=== PATIENT | female | born 1960 | race Caucasian/White ===

== ENCOUNTER → 2018-12-02 | Outpatient (CLI) | payer BC ==
[~2018-12-02] MED LIST: ASP81TEC PO; MAG355OR PO; OLME20TA5 PO; OMEP-10 PO; PITA2TAB2 PO; TRAM-21 PO
--- NOTE | 2018-12-02 10:45 | Diagnostic Imaging Report ---
INDICATION: Postmenopausal screening for osteoporosis. COMPARISON: None FINDINGS: AP Spine L1-L4: [BMD (g/cm2): 0.985] [T-Score: -1.8] [Z-Score: -0.8] [BMD Previous: na] [BMD % Change: na] LT Hip Neck: [BMD (g/cm2): 0.905] [T-Score: -1.0] [Z-Score: 0.2] LT Hip Total: [BMD (g/cm2):0.809] [T-Score:-1.6] [Z-Score: -0.8] [BMD Previous: na] [BMD % Change: na] RT Hip Neck: [BMD (g/cm2):0.926] [T-Score:-0.8] [Z-Score:0.3] RT Hip Total: [BMD (g/cm2):0.833] [T-score:-1.4] [Z-Score:-0.6] [BMD Previous:na] [BMD % Change:na] *Indicates significant change from prior examination based on 95% confidence level. World Health Organization criteria for BMD interpretation classify patients as Normal (T-score at or above -1.0), Osteopenic (T-score between -1.0 and -2.5) or Osteoporotic (T-score at or below -2.5). LIMITATIONS AND MODIFICATION: None. FRACTURE RISK (FRAX SCORE): The ten year probability of (%): Major Osteoporotic Fracture: [5.3] Hip Fracture: [.3] IMPRESSION: 1. Osteopenia (Low bone mass). 2. Baseline examination. 3. See below National Osteoporosis Foundation guidelines on when to potentially initiate pharmacologic therapy. Based on the National Osteoporosis Foundation Guidelines, pharmacologic treatment should be initiated in any of the following, unless clinical conditions suggest otherwise: * Any patient with prior fragility fracture of the hip or vertebrae. A spine fracture indicates 5X risk for subsequent spine fracture and 2X risk for subsequent hip fracture. * Osteoporosis (T-score <-2.5). * Postmenopausal women and men age 50 and older with low bone mass/osteopenia (T-score between -1.0 and -2.5) by DXA and 10-year major osteoporotic fracture greater than 20% or a 10-year probability of hip fracture greater than 3%. These fracture risks are supplied above in the FRAX score, if applicable. * Clinician judgement and/or patient preferences may indicate treatment for people with 10-year fracture probabilities above or below these levels. Dictated by: Dictated on workstation # [id number]
== END ==
LOC: RAD 09:05
PROVIDERS: ATTEND Family Medicine
DX: Z13.820 Encounter for screening for osteoporosis (principal); Z00.00 Encounter for general adult medical examination without abnormal findings; M85.89 Other specified disorders of bone density and structure, multiple sites; Z78.0 Asymptomatic menopausal state
CPT/HCPCS: 77080

== ENCOUNTER 2019-01-27 05:40 | Outpatient (CLI) | payer BC | END 2019-01-27 17:50 | disposition home or self-care (01) | LOC: PREOP 05:40 | PROVIDERS: ATTEND Surgery | DX: Z01.818 Encounter for other preprocedural examination (principal) ==

== ENCOUNTER 2019-02-03 07:59 | Day surgery (SDC) | payer BC ==
[~2019-02-03] VITALS: Ht 177.8 cm; Wt 60.8 kg
[2019-02-03] MEDS ORDERED: LACTATED RINGERS 1,000 ML IV STA (08:12)
[2019-02-03 08:34] VITALS: BP 172/79
[2019-02-03] MEDS ORDERED: CHOL500049 PO (08:46)
[2019-02-03] MEDS ORDERED: CHOL2000 PO (08:46)
[2019-02-03] MEDS ORDERED: PROPOFOL INJECTION 50 ML IV ONE (08:57)
[2019-02-03] MEDS ORDERED: MIDAZOLAM 2 MG/2 ML (VERSED) VIAL ONE (08:59)
--- NOTE | 2019-02-03 09:33 | Progress Note-Pre Operative ---
Pre-Operative Progress Note H&P Reviewed The H&P was reviewed, patient examined and no changes noted. Date Seen by Provider: Feb 03, 2019 Time Seen by Provider: 09:32 Date H&P Reviewed: Feb 03, 2019 Time H&P Reviewed: 09:32 Pre-Operative Diagnosis: + SARMAD Mcgee DO Feb 03, 2019 09:33
[2019-02-03 10:30] VITALS: BP 132/70
[2019-02-03 10:35] VITALS: BP 154/70
--- NOTE | 2019-02-03 10:37 | Progress Note-Post Operative ---
Post-Operative Progess Note Surgeon (s)/Color Receiver (s) Surgeon SARMAD ABDALLA DO Color Receiver: na Pre-Operative Diagnosis + cologuard Post-Operative Diagnosis mucosal changes, ileocecal valve and transverse colon, tattooing distal to the mucosal changes. hot bx polypectomy X4 Procedure & Operative Findings Date of Procedure 02/03/19 Procedure Performed/Findings Colonoscopy c cold biopsy ileocecal valve and transverse colon c tattooing distal and hot bx polypectomy x 4 Anesthesia Type per ORGANIZATIONAL RESEARCH CONSULTANT Estimated Blood Loss Estimated blood loss (mL): none Specimens/Packing Specimens Removed Ileocecal valve cold bx x2 Transverse colon and splenic flexure cold bx x4 and tattooing distal to mucosal changes descending colon hot bx x2 Sigmoid hot bx x2 rectal polyp x 1 SARMAD ABDALLA DO Feb 03, 2019 10:37
[2019-02-03 10:40] VITALS: BP 148/72
--- NOTE | 2019-02-03 10:40 | Discharge Inst-Simple/Standard ---
Discharge Inst-Standard Patient Instructions/Follow Up Plan of Care/Instructions/FU: 2 weeks [place] Activity as Tolerated: Yes Discharge Diet: Regular Diet (high fiber) SARMAD ABDALLA DO Feb 03, 2019 10:40
[2019-02-03 11:10] VITALS: BP 156/71
--- NOTE | 2019-02-03 11:12 | Anesthesia-General Post-Op ---
MAC Patient Condition Mental Status/LOC: Same as Preop Cardiovascular: Satisfactory Nausea/Vomiting: Absent Respiratory: Satisfactory Pain: Controlled Complications: Absent Post Op Complications Complications None Follow Up Care/Instructions Patient Instructions None needed. Anesthesiology Discharge Order Discharge Order Patient is doing well, no complaints, stable vital signs, no apparent adverse anesthesia problems. No complications reported per nursing. LIBERTAD SNIDER CRNA Feb 03, 2019 11:11
[2019-02-03 11:20] VITALS: BP 156/71
--- NOTE | 2019-02-03 15:11 | OPERATIVE REPORT ---
DATE OF SERVICE: 02/03/2019 PREOPERATIVE DIAGNOSIS: Positive Cologuard test. POSTOPERATIVE DIAGNOSES: Mucosal changes in the ileocecal valve and transverse colon. PROCEDURES PERFORMED: Colonoscopy with cold biopsy of ileocecal valve and transverse colon with tattooing distal and hot biopsy polypectomy x4. SURGEON: Sarmad Dang DO ANESTHESIA: Per SEISMIC OBSERVER. ESTIMATED BLOOD LOSS: None. COMPLICATIONS: None. INDICATIONS: The patient is a 58-year-old female with a positive Cologuard test. She understands risks and benefits of procedure and wished to proceed with procedure. Consent was signed in the chart. DESCRIPTION OF PROCEDURE: The patient was placed in left lateral recumbent position. Timeout was performed. Digital rectal exam was performed. There were no palpable polyps, masses or ulcerations. Scope was inserted in the rectum, advanced all the way to cecum with minimal difficulty. There were no polyps, mass or ulcerations within the cecum itself. In the ileocecal valve, some mucosal changes along the border were present. A couple of cold biopsies were obtained. Scope was then continued and slowly retracted back. There were no polyps, mass or ulcerations within the ascending colon. In the transverse colon near the splenic flexure, significant mucosal changes present. Again, these were flattened and broad which multiple biopsies were obtained. There was also one standalone polyp present here which hot biopsy polypectomy was performed. Just distal to this area was tattooed for reevaluation depending on what pathology demonstrates. Scope was continuously retracted back. Two other polyps were present in the descending colon, which hot biopsy polypectomy was performed. Scope was then continuously retracted back into the sigmoid colon, which had minimal amount of diverticulosis present. Another small polyp present, which hot biopsy polypectomy was performed. Scope was then continuously retracted back into the rectum where another small polyp was present, which hot biopsy polypectomy was performed. Scope was retroflexed noting no other pathology. Scope was returned to its normal position, slowly withdrawn until completely removed. RECOMMENDATIONS: The patient will follow up on biopsies in 2 weeks to discuss pathology results. The patient's further recommendations pending what the results of the pathology demonstrates. Job ID: [id number] DocumentID: [id number] Dictated Date: 02/03/2019 10:45:57 Ground Crew Linesman Date: 02/03/2019 15:10:45 Dictated By: SARMAD DANG DO
== END 2019-02-03 11:20 | disposition home or self-care (01) ==
LOC: ENDO 07:59
PROVIDERS: ATTEND Surgery
DX: D12.0 Benign neoplasm of cecum (principal); K63.5 Polyp of colon; K62.1 Rectal polyp; F17.210 Nicotine dependence, cigarettes, uncomplicated; Z88.6 Allergy status to analgesic agent; Z79.82 Long term (current) use of aspirin; Z79.899 Other long term (current) drug therapy; Z83.3 Family history of diabetes mellitus; Z82.49 Family history of ischemic heart disease and other diseases of the circulatory system

== ENCOUNTER 2019-03-10 05:35 | Outpatient (CLI) | payer BC ==
[~2019-03-10] VITALS: Ht 177.8 cm; Wt 62.3 kg
[~2019-03-10 05:35] MED LIST changes: +CHOL2000 PO; +CHOL500049 PO
[2019-03-10] MEDS ORDERED: OLME20TA24 PO (15:34)
[2019-03-10] MEDS ORDERED: ASPI-999 PO (15:34)
[2019-03-10] MEDS ORDERED: SIMV20TA3 PO (15:34)
== END 2019-03-10 15:37 | disposition home or self-care (01) ==
LOC: PREOP 05:35
PROVIDERS: ATTEND Surgery
DX: Z01.818 Encounter for other preprocedural examination (principal)

== ENCOUNTER 2019-03-17 07:56 | Day surgery (SDC) | payer BC ==
[~2019-03-17] VITALS: Ht 177.8 cm; Wt 62.3 kg
[~2019-03-17 07:56] MED LIST changes: +ASPI-999 PO; +OLME20TA24 PO; +SIMV20TA3 PO
[2019-03-17] MEDS ORDERED: LACTATED RINGERS 1,000 ML IV ONE (08:06)
[2019-03-17] MEDS ORDERED: LACTATED RINGERS 1,000 ML IV STA (08:06)
[2019-03-17 08:10] VITALS: BP 135/81
[2019-03-17] MEDS ORDERED: PROPOFOL INJECTION 50 ML IV ONE (08:51)
[2019-03-17] MEDS ORDERED: MIDAZOLAM 2 MG/2 ML (VERSED) VIAL ONE (08:51)
--- NOTE | 2019-03-17 08:52 | Progress Note-Pre Operative ---
Pre-Operative Progress Note H&P Reviewed The H&P was reviewed, patient examined and no changes noted. Date Seen by Provider: Mar 17, 2019 Time Seen by Provider: 08:52 Date H&P Reviewed: Mar 17, 2019 Time H&P Reviewed: 08:52 Pre-Operative Diagnosis: ileocecal polyp SARMAD ABDALLA DO Mar 17, 2019 08:52
[2019-03-17 09:50] VITALS: BP 108/54
--- NOTE | 2019-03-17 09:50 | Progress Note-Post Operative ---
Post-Operative Progess Note Surgeon (s)/Poultry Farmer Egg (s) Surgeon SARMAD ABDALLA DO Poultry Farmer Egg: none Pre-Operative Diagnosis ileocecal polyp Post-Operative Diagnosis sigmoid polyp, splenic flexure polyp, descending colon polyp, and ileocecal polyp Procedure & Operative Findings Date of Procedure 03/17/19 Procedure Performed/Findings colonoscopy c hot bx polypectomy x 4 and snare polypectomy x 1 Anesthesia Type per SCOURING MACHINE TENDER Estimated Blood Loss Estimated blood loss (mL): minimal Specimens/Packing Specimens Removed sigmoid polyp, splenic flexure polyp x4 at tattoo, descending colon polyp x2, and ileocecal polyp SARMAD ABDALLA DO Mar 17, 2019 09:50
[2019-03-17 09:55] VITALS: BP_SYST 107; BP_SYST 108; BP_DIAS 54; BP_DIAS 58
--- NOTE | 2019-03-17 09:55 | Discharge Inst-Simple/Standard ---
Discharge Inst-Standard Patient Instructions/Follow Up Plan of Care/Instructions/FU: 2 weeks [place] Activity as Tolerated: Yes Discharge Diet: Regular Diet (high fiber) SARMAD ABDALLA DO Mar 17, 2019 09:55
[2019-03-17 10:26] VITALS: BP 139/63
--- NOTE | 2019-03-17 10:38 | Anesthesia-General Post-Op ---
MAC Patient Condition Mental Status/LOC: Same as Preop Cardiovascular: Satisfactory Nausea/Vomiting: Absent Respiratory: Satisfactory Pain: Controlled Complications: Absent Post Op Complications Complications None Follow Up Care/Instructions Patient Instructions None needed. Anesthesiology Discharge Order Discharge Order Patient is doing well, no complaints, stable vital signs, no apparent adverse anesthesia problems. No complications reported per nursing. HAYDEE CAMPBELL CRNA Mar 17, 2019 10:38
--- NOTE | 2019-03-17 14:52 | OPERATIVE REPORT ---
DATE OF SERVICE: 03/17/2019 PREOPERATIVE DIAGNOSIS: Ileocecal valve polyp. POSTOPERATIVE DIAGNOSIS: Colon polyps. PROCEDURE: Colonoscopy with hot biopsy polypectomy x4 and snare polypectomy x1. SURGEON: Sarmad Dang DO ANESTHESIA: Per COUPON REDEMPTION CLERK. ESTIMATED BLOOD LOSS: None. COMPLICATIONS: None. INDICATIONS: The patient is a 58-year-old female with an ileocecal valve polyp. She understands risks and benefits of procedure and wished to proceed with procedure and consent was signed in the chart. DESCRIPTION OF PROCEDURE: The patient was taken to the endoscopy suite, placed in left lateral recumbent position. Timeout was performed. Digital rectal exam was performed. There were no palpable polyps, masses or ulcerations. Scope was inserted into the rectum, advanced all the way to the cecum, was begun to be advanced from the cecum up through the sigmoid colon. When a polyp nearby diverticula was present, which was able to have snare polypectomy was performed. Scope was continued to be slowly inserted and in the descending colon, another polyp was encountered, which hot biopsy polypectomy was performed. Scope was continued to be inserted all the way to the cecum without any difficulty. Prep was adequate. Scope was then slowly retracted back. Within the cecum, there were no polyps, masses or ulcerations, but on the ileocecal valve, mucosal change previously visualized was still present. Hot biopsy polypectomy was performed and the scope was then continued to be slowly retracted back. There were no polyps, masses or ulcerations within the remainder of the ascending colon, transverse colon. At the splenic flexure, there is a previous tattoo, but there were also mucosal changes present, which multiple hot biopsies and polypectomies were performed and the scope was then continuously retracted back and descending colon, which another polyp was present, which hot biopsy polypectomy was performed. Scope was then continued, slowly retracted back through the remainder of the descending colon noting no other pathology. In the sigmoid colon, just noting some mild diverticulosis present. Once in the rectum, scope was retroflexed noting no other pathology. Scope was returned to its normal position, slowly withdrawn until completely removed. The patient tolerated procedure well without any complications. She was taken to recovery room in stable condition. RECOMMENDATIONS: The patient will need repeat colonoscopy in one year depending upon pathology results, may decide to do a little bit earlier. Await biopsy results for final recommendations. Job ID: [id number] DocumentID: [id number] Dictated Date: 03/17/2019 10:01:04 Buildings And Grounds Director Date: 03/17/2019 14:51:51 Dictated By: SARMAD DANG DO
== END 2019-03-17 10:30 ==
LOC: ENDO 07:56
PROVIDERS: ATTEND Surgery
DX: K63.5 Polyp of colon (principal); E78.5 Hyperlipidemia, unspecified; F17.210 Nicotine dependence, cigarettes, uncomplicated; I10 Essential (primary) hypertension; K21.9 Gastro-esophageal reflux disease without esophagitis; Z88.6 Allergy status to analgesic agent; Z79.82 Long term (current) use of aspirin; Z82.49 Family history of ischemic heart disease and other diseases of the circulatory system; Z83.3 Family history of diabetes mellitus; Z90.49 Acquired absence of other specified parts of digestive tract; Z79.899 Other long term (current) drug therapy

== ENCOUNTER 2019-06-30 13:25 | Emergency (ER) | payer BC ==
[~2019-06-30] VITALS: Ht 177 cm; Wt 59.0 kg
[~2019-06-30 13:25] MED LIST changes: +SIMV20TA26 PO; -SIMV20TA3 PO
[2019-06-30 13:42] LABS: BACTERIA,URINE FEW /HPF; BILIRUBIN,URINE NEGATIVE (NEGATIVE); CLARITY,URINE CLEAR; COLOR,URINE YELLOW; GLUCOSE, URINE (UA) NEGATIVE (NEGATIVE); KETONES,URINE NEGATIVE (NEGATIVE); LEUKOCYTE ESTERASE ,URINE 1+ (NEGATIVE); NITRITE,URINE NEGATIVE (NEGATIVE); PROTEIN,URINE NEGATIVE (NEGATIVE)
--- NOTE | 2019-06-30 13:59 | ED General ---
General Chief Complaint: General Problems/Pain Stated Complaint: WEAKNESS Nursing Triage Note: PT REPORTS HER LEFT EYE HAS BEEN RED AND SHE HAS BEEN LIGHTHEADED AND DIZZY OFF AND ON FOR 3 WEEKS. Nursing Sepsis Screen: No Definite Risk Source of Information: Patient Exam Limitations: No Limitations History of Present Illness Date Seen by Provider: Jun 30, 2019 Time Seen by Provider: 13:45 Initial Comments The patient is a 58-year-old female who presents for evaluation of 3 weeks of generalized weakness and fatigue. She also mentions that her left eye has seemed bloodshot but is not getting better. She has an appointment with her PCP in 2 days. She states this is happened about past and has resolved on its own. She denies chest pain or shortness of breath, headache or neck pain, nausea or vomi ting, fevers or chills, diarrhea, abdominal or back pain, urinary complaints, palpitations or syncope. She is alert and oriented 4, calm, and appears to be in no distress at this time. Timing/Duration: Other (2-3 weeks) Severity: Mild Associated Systoms: Denies Symptoms Allergies and Home Medications Allergies Coded Allergies: hydrocodone (Unverified Adverse Reaction, Intermediate, hives, 04/02/13) Home Medications Aspirin 81 Mg Tab.chew, 81 MG PO DAILY, (Reported) Cholecalciferol (Vitamin D3) 2,000 Unit Capsule, 2,000 UNIT PO DAILY, (Reported) Cholecalciferol (Vitamin D3) 50,000 Unit Capsule, 50,000 UNIT PO WEEK, (Reported) Olmesartan Medoxomil 20 Mg Tablet, 20 MG PO DAILY, (Reported) Simvastatin 20 Mg Tablet, 20 MG PO DAILY, (Reported) Patient Home Medication List Home Medication List Reviewed: Yes Review of Systems Review of Systems Constitutional: weakness EENTM: other (left eye slightly bloodshot) Respiratory: no symptoms reported Cardiovascular: no symptoms reported Gastrointestinal: no symptoms reported Genitourinary: no symptoms reported Musculoskeletal: no symptoms reported Skin: no symptoms reported Psychiatric/Neurological: No Symptoms Reported Hematologic/Lymphatic: No Symptoms Reported Immunological/Allergic: no symptoms reported All Other Systems Reviewed Negative Unless Noted: Yes Past Tyttqkt-Yyjeiz-Cooxib Hx Past Med/Social Hx: Reviewed Nursing Past Med/Soc Hx Patient Social History Alcohol Use: Denies Use Number of Drinks Today: AA Alcohol Beverage of Choice: Beer Recreational Drug Use: No Smoking Status: Current Everyday Smoker Type Used: Cigarettes Recent Foreign Travel: No Contact w/Someone Who Travel: No Recent Infectious Disease Expo: No Recent Hopitalizations: No Physical Abuse: No Sexual Abuse: No Mistreated: No Fear: No Seasonal Allergies Seasonal Allergies: Yes Past Medical History Surgeries: Yes Gallbladder Respiratory: No Cardiac: Yes Hypertension Neurological: No Genitourinary: No Gastrointestinal: Yes Gastroesophageal Reflux Musculoskeletal: No Endocrine: No HEENT: No Cancer: No Psychosocial: No Integumentary: No Blood Disorders: No Physical Exam Vital Signs Vital Signs - First Documented 06/30/19 13:47 Temp 36.0 Pulse 67 Resp 18 B/P (MAP) 158/84 (108) O2 Delivery Room Air Capillary Refill : Less Than 3 Seconds Height, Weight, BMI Height: 5'10.00" Weight: 134lbs. 0.0oz. 60.172054dn; 18.00 BMI Method:Stated General Appearance: No Apparent Distress, WD/WN HEENT: PERRL/EOMI, Normal ENT Inspection, Pharynx Normal Neck: Full Range of Motion, Non Tender, Supple Respiratory: Chest Non Tender, Lungs Clear, Normal Breath Sounds, No Accessory Muscle Use Cardiovascular: Regular Rate, Rhythm, No Edema, No Murmur, Normal Peripheral Pulses Gastrointestinal: Normal Bowel Sounds, Non Tender, Soft Back: Normal Inspection, No CVA Tenderness Extremity: Normal Capillary Refill, Normal Inspection, Non Tender Neurologic/Psychiatric: Alert, Oriented x3, No Motor/Sensory Deficits, Normal Mood/Affect, foreign law consultant II-XII Norm as Tested Skin: Normal Color, Warm/Dry Progress/Results/Core Measures Suspected Sepsis Recent Fever Within 48 Hours: No Infection Criteria Present: None New/Unexplained Altered Menta: No Sepsis Screen: No Definite Risk SIRS Temperature: Pulse: 67 Respiratory Rate: 18 Laboratory Tests 06/30/19 13:50: White Blood Count 8.5 Blood Pressure 158 /84 Mean: 108 Laboratory Tests 06/30/19 13:50: Creatinine 0.71, Platelet Count 256, Total Bilirubin 0.6 Results/Orders Lab Results Laboratory Tests Test 06/30/19 13:31 06/30/19 13:50 Range/Units Urine Color YELLOW Urine Clarity CLEAR Urine pH 6.0 5-9 Urine Specific [place] 1.010 L 1.016-1.022 Urine Protein NEGATIVE NEGATIVE Urine Glucose (UA) NEGATIVE NEGATIVE Urine Ketones NEGATIVE NEGATIVE Urine Nitrite NEGATIVE NEGATIVE Urine Bilirubin NEGATIVE NEGATIVE Urine Urobilinogen 0.2 < = 1.0 MG/DL Urine Leukocyte Esterase 1+ H NEGATIVE Urine RBC (Auto) 2+ H NEGATIVE Urine RBC 2-5 H /HPF Urine WBC 2-5 /HPF Urine Squamous Epithelial Cells 2-5 /HPF Urine Renal Epithelial Cells /HPF Urine Crystals NONE /LPF Urine Calcium Oxalate Crystals /LPF Urine Bacteria FEW H /HPF Urine Casts NONE /LPF Urine Mucus NEGATIVE /LPF Urine Culture Indicated NO White Blood Count 8.5 4.3-11.0 10^3/uL Red Blood Count 4.63 4.35-5.85 10^6/uL Hemoglobin 14.1 11.5-16.0 G/DL Hematocrit 43 35-52 % Mean Corpuscular Volume 93 80-99 FL Mean Corpuscular Hemoglobin 30 25-34 PG Mean Corpuscular Hemoglobin Concent 33 32-36 G/DL Red Cell Distribution Width 12.5 10.0-14.5 % Platelet Count 256 130-400 10^3/uL Mean Platelet Volume 9.5 7.4-10.4 FL Neutrophils (%) (Auto) 71 42-75 % Lymphocytes (%) (Auto) 21 12-44 % Monocytes (%) (Auto) 7 0-12 % Eosinophils (%) (Auto) 1 0-10 % Basophils (%) (Auto) 1 0-10 % Neutrophils # (Auto) 6.0 1.8-7.8 X 10^3 Lymphocytes # (Auto) 1.8 1.0-4.0 X 10^3 Monocytes # (Auto) 0.6 0.0-1.0 X 10^3 Eosinophils # (Auto) 0.1 0.0-0.3 10^3/uL Basophils # (Auto) 0.1 0.0-0.1 10^3/uL Sodium Level 145 135-145 MMOL/L Potassium Level 3.9 3.6-5.0 MMOL/L Chloride Level 107 98-107 MMOL/L Carbon Dioxide Level 26 21-32 MMOL/L Anion Gap 12 5-14 MMOL/L Blood Urea Nitrogen 12 7-18 MG/DL Creatinine 0.71 0.60-1.30 MG/DL Estimat Glomerular Filtration Rate > 60 BUN/Creatinine Ratio 17 Glucose Level 132 H 70-105 MG/DL Calcium Level 9.8 8.5-10.1 MG/DL Corrected Calcium 9.4 8.5-10.1 MG/DL Total Bilirubin 0.6 0.1-1.0 MG/DL Aspartate Amino Transf (AST/SGOT) 18 5-34 U/L Alanine Aminotransferase (ALT/SGPT) 12 0-55 U/L Alkaline Phosphatase 72 40-136 U/L Total Protein 7.0 6.4-8.2 GM/DL Albumin 4.5 3.2-4.5 GM/DL My Orders Orders - CECILE LIU DO Urinalysis (06/30/19 13:30) Cbc With Automated Diff (06/30/19 13:47) Comprehensive Metabolic Panel (06/30/19 13:47) Ns Iv 1000 Ml (Sodium Chloride 0.9%) (06/30/19 14:00) Thyroid Stimulating Hormone (06/30/19 13:47) Free T4 (Free Thyroxine) (06/30/19 13:47) Ekg Tracing (06/30/19 13:48) Vital Signs/I&O 06/30/19 13:47 Temp 36.0 Pulse 67 Resp 18 B/P (MAP) 158/84 (108) O2 Delivery Room Air Capillary Refill : Less Than 3 Seconds Blood Pressure Mean: 108 Progress Note : Progress Note @1452 - patient informed of lab results which are essentially unremarkable other than showing a mild UTI. She has been able to amulet to the restroom without difficulty or assistance. Advised the patient to follow-up with her PCP as previously arranged and to return to the emergency Department immediately for new or worsening symptoms. Esses verbal understanding and agreement with the plan. She'll go home with a prescription for antibiotics for the UTI. ECG EKG : Comment EKG @1352 - Normal sinus rhythm, rate of 64, no acute ischemic findings noted, no STEMI, reviewed and interpreted by myself Departure Impression Primary Impression: Fatigue Additional Impression: UTI (urinary tract infection) Disposition: 01 HOME, SELF-CARE Condition: Stable Departure-Patient Inst. Decision time for Depature: 14:53 Referrals: SELF,FLORENCE MOSCOSO (PCP/Family) Primary Care Physician Patient Instructions: Urinary Tract Infection, Adult (DC), Fatigue (DC) Add. Discharge Instructions: Drink plenty of water at home. Take the prescribed antibiotics as directed. Return to the emergency Department immediately for new or worsening symptoms. Follow-up with your doctor as you previously arranged in 2 days. Scripts Nitrofurantoin Monohyd/M-Cryst (Macrobid 100 mg Capsule) 100 Mg Capsule 1 TAB PO BID for 5 Days, #10 CAP Prov: CCEILE LIU DO 06/30/19 CECILE LIU DO Jun 30, 2019 13:59
[2019-06-30] MEDS ORDERED: NS IV 1000 ML 1,000 ML IV SCH (14:00)
[2019-06-30 14:03] LABS: BASOPHILS # (AUTO) 0.1 10^3/uL (0.0-0.1); BASOPHILS % (AUTO) 1 % (0-10); EOSINOPHILS # (AUTO) 0.1 10^3/uL (0.0-0.3); EOSINOPHILS % (AUTO) 1 % (0-10); HEMATOCRIT 43 % (35-52); HEMOGLOBIN 14.1 G/DL (11.5-16.0); LYMPHOCYTES # (AUTO) 1.8 X 10^3 (1.0-4.0); LYMPHOCYTES % (AUTO) 21 % (12-44); MEAN CORPUSCULAR HEMOGLOBIN 30 PG (25-34); MEAN CORPUSCULAR HGB CONC 33 G/DL (32-36); MEAN CORPUSCULAR VOLUME 93 FL (80-99); MEAN PLATELET VOLUME 9.5 FL (7.4-10.4); MONOCYTES # (AUTO) 0.6 X 10^3 (0.0-1.0); MONOCYTES % (AUTO) 7 % (0-12); NEUTROPHILS % (AUTO) 71 % (42-75); PLATELET COUNT 256 10^3/uL (130-400); RED CELL DISTRIBUTION WIDTH 12.5 % (10.0-14.5); WHITE BLOOD COUNT 8.5 10^3/uL (4.3-11.0)
[2019-06-30 14:18] LABS: ALANINE AMINOTRANSFERASE 12 U/L (0-55); ALBUMIN 4.5 GM/DL (3.2-4.5); ALKALINE PHOSPHATASE 72 U/L (40-136); BILIRUBIN,TOTAL 0.6 MG/DL (0.1-1.0); BUN/CREATININE RATIO 17; CALCIUM 9.8 MG/DL (8.5-10.1); CARBON DIOXIDE 26 MMOL/L (21-32); CHLORIDE 107 MMOL/L (98-107); CREATININE SERUM 0.71 MG/DL (0.60-1.30); GFR ESTIMATED > 60; GLUCOSE 132 MG/DL (70-105); POTASSIUM 3.9 MMOL/L (3.6-5.0); SODIUM 145 MMOL/L (135-145)
[2019-06-30] MEDS ORDERED: NITR-65 PO (14:55)
[2019-06-30 15:14] VITALS: BP 124/72
[2019-06-30 16:00] LABS: FREE T4 (FREE THYROXINE) 0.94 NG/DL (0.70-1.48)
== END 2019-06-30 15:16 | disposition home or self-care (01) ==
LOC: EDUNIT# 13:25 → ER FS 13:26
DX: N39.0 Urinary tract infection, site not specified (principal); I10 Essential (primary) hypertension; F17.210 Nicotine dependence, cigarettes, uncomplicated; Z88.5 Allergy status to narcotic agent; Z79.82 Long term (current) use of aspirin
CPT/HCPCS: 36415; 80053; 81000; 84439; 84443; 85025; 93005

== ENCOUNTER → 2020-01-21 | Outpatient (CLI) | payer BC, OTHER ==
[~2020-01-21] MED LIST changes: +NITR-65 PO
== END ==
LOC: WOUNDCARE 09:14
PROVIDERS: ATTEND Surgery
DX: L84 Corns and callosities (principal); M20.41 Other hammer toe(s) (acquired), right foot
CPT/HCPCS: 99213

== ENCOUNTER 2021-06-14 12:49 | Outpatient (CLI) | payer OTHER | END 2021-06-14 13:10 | LOC: SLEEP 12:49 | PROVIDERS: ATTEND Nurse Practitioner | DX: G47.33 Obstructive sleep apnea (adult) (pediatric) (principal); G47.10 Hypersomnia, unspecified; I51.9 Heart disease, unspecified | CPT/HCPCS: G0399 ==

== ENCOUNTER → 2021-09-07 | Outpatient (CLI) | payer OTHER ==
--- NOTE | 2021-09-07 13:05 | Diagnostic Imaging Report ---
PROCEDURE: US Thyroid. TECHNIQUE: Multiple real-time grayscale images were obtained of the thyroid in various projections. INDICATION: Lymphadenopathy. COMPARISON: None. FINDINGS: Both thyroid lobes demonstrate a generalized heterogeneous echogenicity. Color flow Doppler demonstrates increased vascularity bilaterally. The right lobe measures 4.7 cm in length , 1.7 cm AP, and 1.5 cm transverse. The left lobe measures 3.9 cm in length , 1.3 cm AP, and 1.5 cm transverse. A hypoechoic nodule is seen in the right lobe of the thyroid measuring 0.6 x 0.4 x 0.3 cm. Mildly prominent lymph nodes are seen in the bilateral submandibular regions, with the largest on the right measuring 1.2 x 0.7 x 1.1 cm and the largest on the left measuring 1.0 x 0.5 x 1.0 cm. Impression: 1. Enlarged and heterogeneous thyroid with increased vascularity. This appearance can be seen with Graves' disease or Adelfo's thyroiditis. Recommend correlation with TSH levels and clinical history. 2. Nodule in the right lobe of the thyroid measuring 0.6 cm. Based on size and imaging characteristics, no dedicated follow-up is recommended. 3. Prominent lymph nodes in the bilateral submandibular region. Findings are favored to be reactive although malignancy is not excluded. Recommend follow-up in 2-[address] of the neck with contrast could also be performed to further evaluate. Dictated by: Dictated on workstation # [id number]
== END ==
LOC: RAD FS 10:40
PROVIDERS: ATTEND Otolaryngology Otolaryngology/Facial Plastic Surgery
DX: E04.1 Nontoxic single thyroid nodule (principal); R59.0 Localized enlarged lymph nodes
CPT/HCPCS: 76536

== ENCOUNTER → 2021-09-14 | Outpatient (CLI) | payer OTHER ==
[~2021-09-14] MED LIST changes: +CATHETER FLUSH 10 ML SYR IV PRN; +HOLD METFORMIN - RECEIVED CONTRAST 20 ML VIAL IV SCH; +IOHEXOL 350 MG/ML 100 ML (OMNIPAQUE 350) VIAL IV ONE; +NS 100 ML (IVPB) BAG IV ONE
[2021-09-14 10:58] LABS: CREATININE SERUM 0.77 MG/DL (0.60-1.30)
--- NOTE | 2021-09-14 12:16 | Diagnostic Imaging Report ---
CLINICAL INDICATION: Patient with lymphadenopathy. EXAM: Axial CT scan of the neck soft tissue with 75 mL of Omnipaque 350 IV contrast. Sagittal and coronal reformatted images are created. Auto Exposure Controls were utilized during the CT exam to meet ALARA standards for radiation dose reduction. COMPARISON: Ultrasound thyroid gland dated 09/07/2021. FINDINGS: There is a 1.0 cm x 1.1 cm x 1.1 cm circumscribed slightly dense nodular area involving the tail of the right parotid gland. There is a small lymph node in the right level 2A region, which measures 9 mm x 6 mm x 12 mm. This is seen just medially and inferiorly adjacent to the previously described nodular area involving the parotid gland. There is no other significant abnormality involving the right side of the neck. There is no lymphadenopathy. There is nonspecific mild symmetric prominence of the epiglottic folds and supraglottic larynx with no measurable mass. This is nonspecific. The nasopharynx, oropharynx, hypopharynx, and laryngeal soft tissue structures are unremarkable. The oral cavity, tongue, sublingual and submandibular regions are unremarkable. Salivary glands show no significant abnormality. The thyroid gland shows no significant abnormality, and ultrasound better evaluates thyroid gland. There are a few small left lymph nodes seen just inferior to the left thyroid gland with the largest one measuring 6 mm x 4 mm in greatest axial dimension x 7 mm in craniocaudal dimension. There is mild atherosclerotic disease involving the carotid arteries which are patent. Visualized intracranial structures are unremarkable. Paranasal sinuses and mastoid air cells unremarkable. There is left curvature of the cervicothoracic spine. Emphysematous lung disease is seen. IMPRESSION: 1: There is an 11 mm circumscribed slightly dense nodular area involving the tail of the right parotid gland. This may represent a primary salivary gland neoplasm such as pleomorphic adenoma. Lymph node is suspected to be less likely. ENT consultation is suggested. 2: There are a few small, nonsuspicious appearing lymph nodes seen inferior to the left thyroid lobe. 3: There is nonspecific mild symmetric prominence of the epiglottic folds and supraglottic larynx with no measurable mass. This is nonspecific. This may be related to mild infectious or inflammatory process or positioning of the larynx/vocal cords. Dictated by: Dictated on workstation # [id number]
[2021-09-14 15:03] LABS: FREE T4 (FREE THYROXINE) 1.09 NG/DL (0.70-1.48)
== END ==
LOC: LAB FS 09:44
PROVIDERS: ATTEND Otolaryngology Otolaryngology/Facial Plastic Surgery
DX: R22.1 Localized swelling, mass and lump, neck (principal); Z72.0 Tobacco use
CPT/HCPCS: 36415; 70491; 82565; 84439; 84443; 84445; 84520; 86376; Q9967

== ENCOUNTER → 2021-09-27 | Outpatient (CLI) | payer OTHER ==
[~2021-09-27] VITALS: Ht 177.8 cm; Wt 58.2 kg
[~2021-09-27] MED LIST changes: -CATHETER FLUSH 10 ML SYR IV PRN; -HOLD METFORMIN - RECEIVED CONTRAST 20 ML VIAL IV SCH; -IOHEXOL 350 MG/ML 100 ML (OMNIPAQUE 350) VIAL IV ONE; +LIDOCAINE 1% INJ 20 ML VIAL INJ ONE; -NS 100 ML (IVPB) BAG IV ONE
--- NOTE | 2021-09-27 19:12 | Diagnostic Imaging Report ---
INDICATION: Right parotid nodule. Patient presents for ultrasound-guided fine needle aspiration. FINDINGS: Patient was brought to the procedure room, placed on table in the [id number] decubitus position. Ultrasound imaging of the right neck was performed to evaluate appropriate entry site. Right neck was then prepped and draped in usual sterile fashion. Small amount of 1% lidocaine was utilized for local anesthesia. A total of four passes were made into the solid nodule in the tail of the right parotid gland utilizing 25-gauge needles and fine-needle aspiration technique. Hemostasis was obtained using manual compression. Patient tolerated the procedure well and left the department in stable condition. IMPRESSION: Successful ultrasound-guided fine-needle aspiration of the solid nodule in the tail of the right parotid gland. Pathology results are currently pending. Dictated by: Dictated on workstation # [id number]
== END ==
LOC: RAD 14:00
PROVIDERS: ATTEND Otolaryngology Otolaryngology/Facial Plastic Surgery
DX: K11.8 Other diseases of salivary glands (principal)

== ENCOUNTER → 2022-08-13 | Outpatient (CLI) | payer OTHER ==
[~2022-08-13] MED LIST changes: -LIDOCAINE 1% INJ 20 ML VIAL INJ ONE
--- NOTE | 2022-08-13 17:13 | Diagnostic Imaging Report ---
EXAMINATION: CT chest without contrast (lung screening). TECHNIQUE: Multiple contiguous axial images were obtained through the chest without the use of intravenous contrast according to lung cancer screening protocol. All CT scans use one or more of the following dose optimizing techniques: automated exposure control, MA and/or KvP adjustment based on patient size and exam type or iterative reconstruction. HISTORY: 30 pack year history of smoking. COMPARISON: None available. FINDINGS: Thyroid: The thyroid is normal. Mediastinum: Heart size is normal without significant pericardial effusion. Calcifications of the aorta and coronary vessels. Thoracic aorta is normal in caliber. No suspicious lymphadenopathy. Lungs and airways: There are background emphysematous changes in the lungs without consolidation, pleural effusion, or pneumothorax. No suspicious pulmonary nodule. The airways are normal. Upper abdomen: There is an 8.8 cm lesion within the right hepatic lobe which is partially visualized. Musculoskeletal: Degenerative changes of the spine without suspicious osseous lesion or compression fracture. IMPRESSION: 1. No suspicious pulmonary nodules. Recommend continued annual low-dose CT screening. 2. Indeterminate 8.8 cm lesion within the liver. Consider dedicated MRI with and without Gadavist IV contrast for more definitive characterization. LUNG-RADS CATEGORY: 1 MODIFIER: S Dictated on workstation # [id number]
== END ==
LOC: RAD 13:56
PROVIDERS: ATTEND Family Medicine
DX: Z12.2 Encounter for screening for malignant neoplasm of respiratory organs (principal); Z87.891 Personal history of nicotine dependence
CPT/HCPCS: 71271

== ENCOUNTER → 2022-09-17 | Outpatient (CLI) | payer OTHER ==
[~2022-09-17] MED LIST changes: +GADOTERATE 0.5 MMOL/ML (CLARISCAN) 15 ML VIAL IV ONE
--- NOTE | 2022-09-17 15:38 | Diagnostic Imaging Report ---
EXAMINATION: MRI of the abdomen with and without contrast. TECHNIQUE: Multiplanar, multisequence MR images of the abdomen were obtained with and without intravenous contrast. HISTORY: LIVER LESION RIGHT LOBE. COMPARISON: 08/13/2022. FINDINGS: Liver: There is an 8.7 x 8.1 cm T2 hyperintense lesion within the right hepatic lobe. There is an additional lesion in the right hepatic lobe which measures 1.2 cm. A left hepatic lesion measures 2.0 cm. These lesions demonstrate peripheral discontinuous nodular enhancement with progressive filling on delayed images. The hepatic and portal veins are patent. Gallbladder and Bile Ducts: The common bile duct is dilated up to 1.3 cm. The gallbladder is surgically absent. Pancreas: The pancreas is normal in volume, signal intensity, and enhancement. There is no dilation of the main pancreatic duct. Kidneys: There is no hydronephrosis. Adrenal glands: There is no adrenal gland nodule or thickening. Spleen: The spleen is normal in size without focal lesion. Lymph Nodes: There is no suspicious lymphadenopathy. Other: There is no ascites. IMPRESSION: 1. Multiple lesions within the liver measuring up to 8.7 cm with imaging characteristics compatible with hemangiomas. 2. Biliary ductal dilatation to the level of the ampulla. Consider further evaluation with ERCP. Dictated by: Dictated on workstation # [id number]
== END ==
LOC: RAD 13:09
PROVIDERS: ATTEND Family Medicine
DX: K76.89 Other specified diseases of liver (principal)
CPT/HCPCS: 74183